=== PATIENT | female | born 1990 | race Hispanic/Latino ===

== ENCOUNTER 2018-01-02 09:06 | Emergency (ER) | payer MEDICAID, OTHER ==
[~2018-01-02 09:06] MED LIST: IBUP-2070 PO
[2018-01-02 10:00] LABS: BASOPHILS % (AUTO) 0.5 % (0.0-5.0); EOSINOPHILS % (AUTO) 1.7 % (0.0-8.0); HEMATOCRIT 44.7 % (36-48); LYMPHOCYTES % (AUTO) 23.4 % (21.0-51.0); MEAN CORPUSCULAR HEMOGLOBIN 30.1 pg (27.0-33.0); MEAN CORPUSCULAR HGB CONC 33.5 g/dL (32.0-36.0); MEAN CORPUSCULAR VOLUME 89.6 fL (79-99); MONOCYTES % (AUTO) 7.1 % (3.0-13.0); NEUTROPHILS % (AUTO) 67.3 % (40.0-77.0); PLATELET COUNT (AUTO) 355 K/uL (130-400); RED BLOOD CELL COUNT(AUTO) 4.98 MIL/uL (4.00-5.50); RED CELL DISTRIBUTION WIDTH 13.7 % (11.0-15.5); WHITE BLOOD COUNT (AUTO) 11.8 K/uL (4.8-10.8)
[2018-01-02 10:02] LABS: APPEARANCE,URINE Clear (CLEAR); BILIRUBIN,URINE Negative (NEGATIVE); COLOR,URINE Yellow (YELLOW); GLUCOSE, URINE (UA) Negative (NEGATIVE); KETONES,URINE 15 mg/dL (NEGATIVE); LEUKOCYTE ESTERASE ,URINE Small (NEGATIVE); NITRATE,URINE Negative (NEGATIVE); OCCULT BLOOD,URINE Nonhemolyzed Trace (NEGATIVE); PROTEIN,URINE Negative (NEGATIVE)
[2018-01-02 10:04] LABS: HCG,QUAL RESULT NEGATIVE (NEGATIVE)
[2018-01-02] MEDS ORDERED: KETOROLAC TROMETHAMINE 30MG/ML ONE (10:05)
[2018-01-02] MEDS ORDERED: ONDANSETRON HCL 4 MG/2 ML VIAL ONE (10:05)
[2018-01-02] MEDS ORDERED: ONDANSETRON ODT 4 MG TAB ONE (10:10)
[2018-01-02 10:26] LABS: BACTERIA,URINE Rare /HPF (None Seen); SQUAMOUS EPITHELIAL CELL,UR Few /LPF (0-2); WBC,URINE 0-1 /HPF (0-1)
[2018-01-02 10:28] LABS: CREATININE 0.6 mg/dL (0.5-1.5); POTASSIUM 3.7 mmol/L (3.5-5.1)
[2018-01-02 10:32] LABS: ALBUMIN 3.5 g/dL (3.5-5.0); BILIRUBIN,TOTAL 0.4 mg/dL (0.2-1.0); TOTAL PROTEIN, SERUM 7.9 g/dL (6.0-8.3)
== END 2018-01-02 11:09 | disposition home or self-care (01) ==
LOC: EDH 09:06
DX: K80.20 Calculus of gallbladder without cholecystitis without obstruction (principal); G89.29 Other chronic pain; M54.5 Low back pain; J45.909 Unspecified asthma, uncomplicated; Z72.0 Tobacco use
CPT/HCPCS: 36415; 76705; 80053; 81001; 81025; 83690; 85025; 96374; 99285; J1885; J2405

== ENCOUNTER 2018-01-17 23:47 | Inpatient (IN) | payer SELFPAY ==
[~2018-01-17] VITALS: Ht 149.9 cm; Wt 82.2 kg
[2018-01-18 00:23] LABS: BASOPHILS % (AUTO) 0.5 % (0.0-5.0); EOSINOPHILS % (AUTO) 0.5 % (0.0-8.0); LYMPHOCYTES % (AUTO) 42.7 % (21.0-51.0); MEAN CORPUSCULAR HEMOGLOBIN 30.4 pg (27.0-33.0); MEAN CORPUSCULAR HGB CONC 34.4 g/dL (32.0-36.0); MEAN CORPUSCULAR VOLUME 88.4 fL (79-99); MONOCYTES % (AUTO) 7.2 % (3.0-13.0); NEUTROPHILS % (AUTO) 49.1 % (40.0-77.0); PLATELET COUNT (AUTO) 364 K/uL (130-400); RED BLOOD CELL COUNT(AUTO) 4.53 MIL/uL (4.00-5.50); RED CELL DISTRIBUTION WIDTH 13.7 % (11.0-15.5); WHITE BLOOD COUNT (AUTO) 14.3 K/uL (4.8-10.8)
[2018-01-18] MEDS ORDERED: ONDANSETRON HCL 4 MG/2 ML VIAL ONE (00:28)
[2018-01-18 00:37] LABS: CREATININE 0.8 mg/dL (0.5-1.5); POTASSIUM 3.5 mmol/L (3.5-5.1)
[2018-01-18 00:41] LABS: ALBUMIN 3.7 g/dL (3.5-5.0); BILIRUBIN,TOTAL 0.5 mg/dL (0.2-1.0); TOTAL PROTEIN, SERUM 7.9 g/dL (6.0-8.3)
[2018-01-18] MEDS ORDERED: HYDROMORPHONE HCL 0.5 MG/0.5 ML ML ONE (00:59)
[2018-01-18 01:12] LABS: APPEARANCE,URINE Turbid (CLEAR); BILIRUBIN,URINE Negative (NEGATIVE); COLOR,URINE Yellow (YELLOW); GLUCOSE, URINE (UA) Negative (NEGATIVE); KETONES,URINE Trace mg/dL (NEGATIVE); LEUKOCYTE ESTERASE ,URINE Large (NEGATIVE); NITRATE,URINE Negative (NEGATIVE); OCCULT BLOOD,URINE Negative (NEGATIVE); PH,URINE 7.5 (5.0-8.0); PROTEIN,URINE POS 1+ (NEGATIVE)
[2018-01-18 01:21] LABS: AMPHET/METH SCREEN,URINE NEGATIVE (NEGATIVE); BARBITURATE SCREEN, URINE NEGATIVE (NEGATIVE); BENZODIAZEPINES SCREEN,URINE POSITIVE (NEGATIVE); CANNABINOID SCREEN,URINE POSITIVE (NEGATIVE); COCAINE SCREEN,URINE POSITIVE (NEGATIVE); OPIATE SCREEN,URINE NEGATIVE (NEGATIVE); PHENCYCLIDINE SCREEN,URINE NEGATIVE (NEGATIVE)
[2018-01-18 01:32] LABS: BACTERIA,URINE Moderate /HPF (None Seen); MUCUS,URINE Few LPF (None Seen); RBC,URINE 0-1 /HPF (0-1); SQUAMOUS EPITHELIAL CELL,UR Moderate /LPF (0-2)
[2018-01-18 06:10] VITALS: BP 103/55
[2018-01-18] MEDS ORDERED: DICY20TA11 PO (06:24)
[2018-01-18] MEDS: SODIUM CHLORIDE 0.9% 1000ML 1,000 ML IV SCH ×2 (06:34→21:40)
[2018-01-18] MEDS: FLU VACC QS2017-18 36MOS UP/PF 60 MCG/0.5 ML ML IM SCH (07:00)
[2018-01-18 07:51] VITALS: BP 116/67
[2018-01-18] MEDS ORDERED: BUPIVACAINE/EPI/PF 0.5% 30ML VIAL IJ SCH (08:30)
[2018-01-18 11:41] VITALS: BP 106/45
[2018-01-18] MEDS: UNASYN 3GM+NS 100ML 100 ML IV SCH ×3 (12:00→23:43)
[2018-01-18] MEDS: MORPHINE SULFATE 4 MG/1ML SYG IV PRN (13:26)
[2018-01-18 15:31] VITALS: BP 155/71
[2018-01-18 20:12] VITALS: BP 128/54
[2018-01-19] VITALS (23 sets, daily range): BP systolic 99–134; BP diastolic 53–81
[2018-01-19] MEDS: UNASYN 3GM+NS 100ML 100 ML IV SCH ×2 (06:01→12:12)
[2018-01-19] MEDS ORDERED: LACTATED RINGERS 1000ML 1,000 ML IV ONE (06:08)
[2018-01-19] MEDS ORDERED: LIDOCAINE HCL 4% LTA SOL 4 ML VIAL ONE (07:03)
[2018-01-19] MEDS ORDERED: PROPOFOL 10 MG/ML 20ML VIAL IV ONE (07:03)
[2018-01-19] MEDS ORDERED: FENTANYL CITRATE PF 50 MCG/1 ML 2ML VIAL ONE (07:03)
[2018-01-19] MEDS ORDERED: ONDANSETRON HCL 4 MG/2 ML VIAL ONE (07:03)
[2018-01-19] MEDS ORDERED: LIDOCAINE PF 2% 5ML ABBOJECT ONE (07:03)
[2018-01-19] MEDS ORDERED: LIDOCAINE HCL-MPF 1% 5ML AMP IJ ONE (07:03)
[2018-01-19] MEDS ORDERED: ROCURONIUM BROMIDE 10MG/1ML 5ML VL ONE (07:03)
[2018-01-19] MEDS ORDERED: NEOSTIGMINE 5MG/5ML SYR IV ONE (07:03)
[2018-01-19] MEDS ORDERED: DEXAMETHASONE SOD PHOSPHATE 10MG/ML 1ML VIAL ONE (07:03)
[2018-01-19] MEDS ORDERED: GLYCOPYRROLATE 0.2 MG/ML 5 ML VIAL ONE (07:03)
[2018-01-19] MEDS ORDERED: MIDAZOLAM HCL 1 MG/ML 2ML VIAL ONE (07:03)
[2018-01-19] MEDS ORDERED: ISOVUE-370 50ML VIAL IV ONE (07:23)
[2018-01-19] MEDS ORDERED: MEPERIDINE-PF 50 MG/ML SYG ONE ×2 (08:18→08:37)
[2018-01-19] MEDS ORDERED: ROPIVACAINE 0.5% 5MG/ML 30ML IJ ONE (08:24)
[2018-01-19] MEDS ORDERED: KETOROLAC TROMETHAMINE 30MG/ML ONE (09:05)
[2018-01-19] MEDS ORDERED: MORPHINE SULFATE 2 MG/ML 1ML SYG ONE ×2 (09:06)
[2018-01-19] MEDS ORDERED: ACETAMINOPHEN 325 MG TAB PO PRN (10:30)
[2018-01-19] MEDS ORDERED: TRAMADOL HCL 50 MG TABLET PO PRN ×2 (10:30)
[2018-01-19] MEDS: SODIUM CHLORIDE 0.9% 1000ML 1,000 ML IV SCH (10:31)
[2018-01-19] MEDS: FLU VACC QS2017-18 36MOS UP/PF 60 MCG/0.5 ML ML IM SCH (12:16)
[2018-01-19] MEDS: MORPHINE SULFATE 4 MG/1ML SYG IV PRN (12:27)
[2018-01-19] MEDS ORDERED: ONDANSETRON HCL 4 MG/2 ML VIAL IVP PRN (13:15)
== END 2018-01-19 18:46 | disposition home or self-care (01) | DRG 419 ==
LOC: EDH 23:47 → EDHIP 23:48 → OBSVTOIN 23:48 → 4CH 01-18 05:35
PROVIDERS: ADMIT Surgery; ATTEND Surgery
PROC: 3E0234Z Introduction of Serum, Toxoid and Vaccine into Muscle, Percutaneous Approach (ICD-10-PCS; 2018-01-19)
PROC: 0FT44ZZ Resection of Gallbladder, Percutaneous Endoscopic Approach (ICD-10-PCS; principal; 2018-01-19 07:00)
PROC: BF101ZZ Fluoroscopy of Bile Ducts using Low Osmolar Contrast (ICD-10-PCS; 2018-01-19 07:00)
DX: K80.10 Calculus of gallbladder with chronic cholecystitis without obstruction (principal); F41.9 Anxiety disorder, unspecified; G89.29 Other chronic pain; J45.909 Unspecified asthma, uncomplicated; M54.9 Dorsalgia, unspecified; Z72.0 Tobacco use; Z98.891 History of uterine scar from previous surgery; Z23 Encounter for immunization
CPT/HCPCS: 36415; 48400; 76705; 80053; 80305; 81001; 84703; 85025; 87088; 88304; C1758; J0295; J1100; J1170; J1885; J2001; J2175; J2250; J2270; J2405; J2704; J2710; J2795; J3010; J3490; J7030; J7120; Q2038; Q9967

== ENCOUNTER 2024-09-30 18:13 | Emergency (ER) | payer MEDICAID ==
[~2024-09-30] VITALS: Ht 149.9 cm; Wt 76.2 kg
[~2024-09-30 18:13] MED LIST changes: +AMOX1TAB16 PO; -IBUP-2070 PO
[2024-09-30 19:11] LABS: BASOPHILS # (AUTO) 0.04 K/uL (0.00-0.20); BASOPHILS % (AUTO) 0.6 % (0.0-5.0); EOSINOPHILS # (AUTO) 0.23 K/uL (0.00-0.70); EOSINOPHILS % (AUTO) 3.3 % (0.0-8.0); HEMATOCRIT 37.9 % (36-48); IMMATURE GRANULOCYTE ABSOLUTE 0.03 K/uL (0-1); LYMPHOCYTES # (AUTO) 1.9 K/uL (1.0-4.8); LYMPHOCYTES % (AUTO) 27.5 % (21.0-51.0); MEAN CORPUSCULAR HEMOGLOBIN 30.5 pg (27.0-33.0); MEAN CORPUSCULAR VOLUME 92.4 fL (79-99); MONOCYTES # (AUTO) 0.6 K/uL (0.1-1.0); MONOCYTES % (AUTO) 8.3 % (3.0-13.0); NEUTROPHILS # (AUTO) 4.2 K/uL (1.8-7.7); NEUTROPHILS % (AUTO) 59.9 % (40.0-77.0); PLATELET COUNT (AUTO) 416 K/uL (130-400); RED CELL DISTRIBUTION WIDTH 12.6 % (11.0-15.5)
[2024-09-30 19:12] LABS: CREATININE 0.7 mg/dL (0.5-1.0)
[2024-09-30] MEDS: PENIcillin G benZATHine L-A 1.2 MILUNITS/2 ML SYG IM ONE (20:53)
--- NOTE | 2024-09-30 20:54 | ERN ---
General Chief Complaint: Vaginal Problems/Bleeding Stated Complaint: VAGINAL PROBLEMS, POSSIBLE MISCARRIAGE Time Seen by MD: 18:31 Time Seen by Midlevel: 18:31 Source: patient History of Present Illness Initial Comments Patient is a 34-year-old female presenting to the ER for evaluation of a possible miscarriage. Patient states she has not gotten her period in over two months and is concerned that she may be . Recently tested positive for syphilis but has not been treated for it. The placed who tested her told her that she needed to return to get treated however patient decided to report to the ER for further evaluation. She does report a generalized rash that includes the palms and soles of her feet. She has no other complaints at this time. Allergies: Coded Allergies: No Known Drug Allergies (Unverified Allergy, Unknown, 11/28/16) Home Meds Active Scripts Amoxicillin/Potassium Clav (Amox Tr-K Clv 875-125 mg Tab) 875 Mg-125 Mg Tablet, 1 EACH PO BID for 7 Days, #14 TAB 0 Refills Prov:KAMERON PRATT NP 03/19/24 Past Medical History Past Medical History: Asthma, Other Medical History Other: HEART MURMUR ,BRADYCARDIA Past Surgical History: Cholecystectomy Female( History) History: Not Applicable ROS Dictation CONSTITUTIONAL: Negative except for HPI HEAD/FACE: Negative except for HPI EENT: Negative except for HPI RESPIRATORY: Negative except for HPI GASTROINTESTINAL/ABDOMINAL: Negative except for HPI GENITOURINARY: Negative except for HPI MUSCULOSKELETAL: Negative except for HPI INTEGUMENTARY: Negative except for HPI NEUROLOGICAL/PSYCH: Negative except for HPI HEMATOLOGIC/LYMPHATIC: Negative except for HPI All Systems Negative, Except as noted above. 13 point review of systems assessed and all negative except for above. Physical Exam Physical Exam Dictation Vital Signs reviewed General Appearance: Alert, oriented x 3, no acute distress, well developed, nourished. Head and Face: non-traumatic. Eyes: PERRL, pink conjunctivas, eyelid no trauma, anterior chamber with arcus senilis. Ears: Pinnas intact and no signs of trauma or erythema ear canals clear and no discharge TM no erythema Nose: No discharge, no bleeding. Oropharynx: Mouth normal, tongue pink, pharynx clear,no erythema, tonsils no exudates, no abscesses noted, mucous membrane moist Neck: Supple, non-tender, no thyromegaly, no masses, no JVD, no bruits Breast:Deferred Chest:No tenderness, no crepitus, no paradoxical movement, no retractions Lungs:Clear, well-ventilated, symmetric, no rales, no wheezing, no rhonchi, no stridor, good breath sounds bilaterally Heart: Regular rate, regular rhythm, no murmur, no gallops Vascular: no peripheral edema, Abdomen: Soft, positive bowel sounds, nondistended, no guarding, nontender, no rebound, no masses no hepatomegaly, no splenomegaly, no Navarro's sign, no hernias. Rectal: Deferred Genital: Deferred Neurological: Normal speech, motor function intact, sensory function intact Musculoskeletal: Neck nontender, full range of motion, back nontender, full range of motion, Extremities: nontender, full range of motion Skin: Color pink, dry, no turgor, no rash, no lacerations, no abrasions, no contusions. Lymphatic: Deferred Results Laboratory and Microbiology Lab and Micro Result Laboratory Tests Test 09/30/24 18:56 09/30/24 20:00 White Blood Count 7.0 K/uL (4.8-10.8) Red Blood Count 4.10 MIL/uL (4.00-5.50) Hemoglobin 12.5 g/dL (12.0-16.0) Hematocrit 37.9 % (36-48) Mean Corpuscular Volume 92.4 fL (79-99) Mean Corpuscular Hemoglobin 30.5 pg (27.0-33.0) Mean Corpuscular Hemoglobin Concent 33.0 g/dL (32.0-36.0) Red Cell Distribution Width 12.6 % (11.0-15.5) Platelet Count 416 K/uL (130-400) H Mean Platelet Volume 10.1 fL (7.5-10.5) Immature Granulocyte % (Auto) 0.4 % (0-1) Neutrophils (%) (Auto) 59.9 % (40.0-77.0) Lymphocytes (%) (Auto) 27.5 % (21.0-51.0) Monocytes (%) (Auto) 8.3 % (3.0-13.0) Eosinophils (%) (Auto) 3.3 % (0.0-8.0) Basophils (%) (Auto) 0.6 % (0.0-5.0) Neutrophils # (Auto) 4.2 K/uL (1.8-7.7) Lymphocytes # (Auto) 1.9 K/uL (1.0-4.8) Monocytes # (Auto) 0.6 K/uL (0.1-1.0) Eosinophils # (Auto) 0.23 K/uL (0.00-0.70) Basophils # (Auto) 0.04 K/uL (0.00-0.20) Absolute Immature Granulocyte (auto 0.03 K/uL (0-1) Nucleated Red Blood Cells 0.0 % (0.0-0.19) Sodium Level 135 mmol/L (136-145) L Potassium Level 4.0 mmol/L (3.5-5.1) Chloride Level 99 mmol/L (101-111) L Carbon Dioxide Level 34 mmol/L (21-32) H Blood Urea Nitrogen 12 mg/dL (7-18) Creatinine 0.7 mg/dL (0.5-1.0) Glomerular Filtration Rate Calc 117 mL/min (>90) Random Glucose 99 mg/dL (70-105) Total Calcium 8.6 mg/dL (8.5-10.1) Human Chorionic Gonadotropin, Quant 0 mIU/mL (0-5) Rapid Plasma Reagin Titer REACTIVE >1:16 (NONREACTIVE) Rapid Plasma Reagin REACTIVE (NONREACTIVE) Urine Color YELLOW (YELLOW) Urine Appearance CLEAR (CLEAR) Urine pH 7.0 (5.0-8.0) Urine Specific [place] 1.024 (1.001-1.031) Urine Protein 10 mg/dL (NEGATIVE) H Urine Glucose (UA) NEGATIVE mg/dL (NEGATIVE) Urine Ketones NEGATIVE mg/dL (NEGATIVE) Urine Occult Blood LARGE (NEGATIVE) H Urine Nitrate NEGATIVE (NEGATIVE) Urine Bilirubin NEGATIVE mg/dL (NEGATIVE) Urine Urobilinogen 3 mg/dL (0.2-1.0) H Urine Leukocyte Esterase 75 Jeri/uL (NEGATIVE) H Urine RBC 2-5 /HPF (0-1) H Urine WBC 6-10 /HPF (0-1) H Urine Squamous Epithelial Cells MOD /HPF (0-2) Urine Bacteria None /HPF (None Seen) Urine Hyaline Casts 2-5 /LPF (0-1 /LPF) H Urine Other Casts 3 /LPF (None Seen) Labs Reviewed?: Yes MDM MDM: Patient is a 34-year-old female presenting to the ER for evaluation of a possible miscarriage. Patient states she has not gotten her period in over two months and is concerned that she may be . Recently tested positive for syphilis but has not been treated for it. The placed who tested her told her that she needed to return to get treated however patient decided to report to the ER for further evaluation. She does report a generalized rash that includes the palms and soles of her feet. She has no other complaints at this time. On physical examination patient is in no acute distress. She was able to provide a letter that states that she was tested positive for syphilis. Patient will be given 2.5 million units of penicillin G IM. She states she tested negative for chlamydia and gonorrhea. She has no concerns for HIV at this time. I will obtain basic labs which are stable. Her hCG is negative so patient is not at this time. I advised patient to follow up with OBGYN and her primary care doctor for repeat evaluation. Differential diagnosis: Exposure to STD, electrolyte abnormality, urinary tract infection, There are no social concerns with this patient. Prescription drug management Prescriptions will include: Medical management and examination interpretation discussions were had by me with other qualified healthcare professionals as indicated for the patient's care. ED Course Orders Procedure Category Date Status Time Cbc With Differential LAB 09/30/24 Complete 18:31 Basic Metabolic Panel LAB 09/30/24 Complete 18:31 Hcg,Quantitative LAB 09/30/24 Complete 18:31 Urinalysis Profile LAB 09/30/24 Complete 18:31 Rapid Plasma Reagin LAB 09/30/24 Complete 19:13 Treponema Pallidum Ab LAB 09/30/24 In Process Igg-Fta 19:13 Penicillin G PHA 09/30/24 Complete Benzathine (Bicillin 19:30 Culture Urine VÍCTOR 09/30/24 In Process 21:39 Treponema Pallidum Ab LAB 10/01/24 In Process Igg-Tppa 14:05 Current Medications Medications (Trade) Dose Ordered Sig/Jagruti Route PRN Reason Start Time Stop Time Status Last Admin Dose Admin Penicillin G Benzathine (BIcillin L-A) 2.4 milunits ONCE ONCE IM 09/30/24 19:30 09/30/24 19:31 DC 09/30/24 20:53 Vital Signs Date Time Temp Pulse Resp B/P (MAP) Pulse Ox O2 Delivery O2 Flow Rate FiO2 09/30/24 21:09 99.0 90 16 132/66 100 Room Air* 0 21 09/30/24 18:34 97.3 76 20 121/85 99 Room Air DX & DISP Disposition: Discharge Departure Impression: Primary Impression: Dysfunctional uterine bleeding Additional Impressions: Concern about STD in female without diagnosis, Exposure to STD Condition: Stable Additional Instructions: Given that you were recently told you tested positive for syphilis you were given penicillin G 2.5 million units for treatment of syphilis. You will need to follow up with your primary care doctor in about a week for repeat testing. Referrals: SELF,REFERRAL (PCP) Time of Disposition: 20:53 I have reviewed the case, and I agree with, Diagnosis and Plan I performed the substantive portion of the visit. I have reviewed and personally made and approve the management plan that is documented in the note by myself or the SUSANA. I acknowledge for responsibility for the patient's management plan. BERE BEAUCHAMP Sep 30, 2024 20:54 YARELY CENTENO DO Oct 02, 2024 08:20
[2024-09-30 21:09] VITALS: BP 132/66; PULSE 90; RESP 16; TEMP 98.9; O2SAT 100
[2024-09-30 21:38] LABS: APPEARANCE,URINE CLEAR (CLEAR); BILIRUBIN,URINE NEGATIVE (NEGATIVE); COLOR,URINE YELLOW (YELLOW); GLUCOSE, URINE (UA) NEGATIVE (NEGATIVE); KETONES,URINE NEGATIVE (NEGATIVE); LEUKOCYTE ESTERASE ,URINE 75 Leu/uL (NEGATIVE); NITRATE,URINE NEGATIVE (NEGATIVE); OCCULT BLOOD,URINE LARGE (NEGATIVE); PROTEIN,URINE 10 mg/dL (NEGATIVE); UROBILINOGEN,URINE 3 mg/dL (0.2-1.0)
[2024-09-30 21:39] LABS: ADD UA MICROSCOPIC YES
[2024-09-30 21:50] LABS: MUCUS,URINE RARE LPF (None Seen); OTHER CASTS, URINE 3 /LPF (None Seen); SQUAMOUS EPITHELIAL CELL,UR MOD /HPF (0-2)
[2024-10-01 14:05] LABS: RAPID PLASMA REAGIN REACTIVE (NONREACTIVE)
[2024-10-01 14:13] LABS: RAPID PLASMA REAGIN TITER REACTIVE >1:16 (NONREACTIVE)
== END 2024-09-30 21:11 | disposition home or self-care (01) ==
LOC: EDH 18:13
DX: N93.8 Other specified abnormal uterine and vaginal bleeding (principal); R10.2 Pelvic and perineal pain; J45.909 Unspecified asthma, uncomplicated; Z20.2 Contact with and (suspected) exposure to infections with a predominantly sexual mode of transmission; Z90.49 Acquired absence of other specified parts of digestive tract; Z79.899 Other long term (current) drug therapy
CPT/HCPCS: 99283; 86780; 86592; 80048; 84702; 85025; 87086; 81001; 36415; 96372; J0561